=== PATIENT | female | born 1970 | race Caucasian/White ===

== ENCOUNTER 2020-07-24 04:21 | Emergency (ER) | payer MEDICAID, OTHER ==
[~2020-07-24] VITALS: Ht 172.7 cm; Wt 117.0 kg
--- NOTE | 2020-07-24 05:18 | PHYS DOC ---
Past History Past Medical History: Depression, Diabetes, GERD, Hypertension, Liver Disease (HUONG MYERS MD) Past Surgical History: Cholecystectomy (HUONG MYERS MD) Smoking: Cigarettes Alcohol Use: None Drug Use: Marijuana (HUONG MYERS MD) General Adult EDM: Chief Complaint: NAUSEA/VOMITING/DIARRHEA HPI: HPI: ". I ve been sick since yesterday... I had a [employer] last night.. but no one else got sick.. I hurt all over my stomach.. more in this upper area.. maybe a little to right... I know it not my gall badder ..because that is out...".. " It may be the Januvia.. I ve been sick and vomiting ever since I started.. dry heaves.. I just could not take it any more..." Patient is a 49 year old female who presents with severe generalized abdomen pain. Does have some localization to epigastric, and right mid area. Patient denies any intake bad food. No recent travel. No sick ill contacts. Patient does have a history of diabetes and hypertension. Has had continual GI problems since starting Januvia. Pt has hx prior GERD, Gastric ulcer in past. Last colonoscopy was negative. Has not had a EGD. Patient has had cholecystectomy. Patient does smoke tobacco and marijuana. Patient denies any history of trauma. Pt. follows at [facility]. Pt. has three cats and they are all well. (HUONG MYERS MD) Review of Systems: Review of Systems: Constitutional: Denies fever or chills Eyes: Denies change in visual acuity HENT: Denies nasal congestion or sore throat Respiratory: Denies cough or shortness of breath Cardiovascular: Denies chest pain or edema GI: Complains of abdominal pain, nausea, vomiting. Denies, bloody stools or diarrhea : Denies dysuria Musculoskeletal: Denies back pain or joint pain Integument: Denies rash Neurologic: Denies headache, focal weakness or sensory changes Endocrine: Denies polyuria or polydipsia Lymphatic: Denies swollen glands Psychiatric: Denies depression or anxiety (HUONG MYERS MD) Heart Score: HEART Score for Chest Pain: HEART Score for Chest Pain Response (Comments) Value History Slighlty/Non-Suspicious 0 ECG Normal 0 Age >45 - < 65 1 Risk Factors 1 or 2 Risk Factors 1 Troponin < Normal Limit 0 Total 2 Risk Factors: Risk Factors: DM, Current or recent (<one month) smoker, HTN, HLP, family history of CAD, obesity. Risk Scores: Score 0 - 3: 2.5% MACE over next 6 weeks - Discharge Home Score 4 - 6: 20.3% MACE over next 6 weeks - Admit for Clinical Observation Score 7 - 10: 72.7% MACE over next 6 weeks - Early Invasive Strategies (HUONG MYERS MD) Family History: Family History: Noncontributory to presentation (HUONG MYERS MD) Current Medications: Current Meds: See nursing for home meds (HUONG MYERS MD) Allergies: Allergies: Allergies Coded Allergies Type Severity Reaction Last Updated Verified codeine Allergy Severe Hives 07/24/20 Yes sulfamethoxazole Allergy Severe Itching 07/24/20 Yes trimethoprim Allergy Severe Itching 07/24/20 Yes (HUONG MYERS MD) Physical Exam: PE: Constitutional: in acute distress, non-toxic appearance. Pt. rocking back and forth on the bed .. due her pain. HENT: Normocephalic, atraumatic, bilateral external ears normal, oropharynx moist, postnasal drainage slight erythema, no oral exudates, nose swollen turbinates and clear rhinorrhea Eyes: PERRLA, EOMI, conjunctiva normal, no discharge. [] Neck: Normal range of motion, no tenderness, supple, no stridor. More than 17 inches circumference Cardiovascular: Cardiac heart rate regular rhythm, no murmur, PMI to the left Lungs & Thorax: Bilateral breath sounds equal apex with scattered wheezes on auscultation [] Abdomen: Bowel sounds hyperactive,, soft, generalized tenderness, no masses, no pulsatile masses. Rebound to right upper quadrant epigastric area. Tympanic. Has old surgery scars. Obese Skin: Warm, diaphoretic, no erythema, no rash. [] Back: No tenderness, no CVA tenderness. [] Extremities: No tenderness, no cyanosis, no clubbing, ROM intact, bilateral ankle edema. [] Neurologic: Alert and oriented X 3, moves all extremities on request, does have distal sensory,, no focal deficits noted. [] Psychologic: Affect anxious, judgement normal, mood normal. [] (HUONG MYERS MD) Current Patient Data: Vital Signs: Vital Signs Date Time Temp Pulse Resp B/P (MAP) Pulse Ox O2 Delivery O2 Flow Rate FiO2 07/24/20 04:21 98.6 95 30 137/119 (125) 98 Room Air (HUONG MYERS MD) EKG: EKG: My interpretation EKG shows a sinus rhythm at 88 bpm. No findings of acute morphology or acute STEMI with contralateral changes. [] (HUONG MYERS MD) Radiology/Procedures: Radiology/Procedures: My interpretation of acute abdomen film shows no acute cardiopulmonary findings, no free air under the diaphragm. Clips in the right upper quadrant from cholecystectomy. Nonspecific bowel gas pattern. Nonobstructive CT of abdomen pending at time of shift change (HUONG MYERS MD) Impressions: CT abdomen and pelvis with contrast History: Severe generalized abdominal pain Technique: After the administration of intravenous contrast, CT imaging was performed of the abdomen and pelvis. No oral contrast was given. Multiplanar images are reviewed. Exposure: One or more of the following individualized dose reduction techniques were utilized for this examination: 1. Automated exposure control 2. Adjustment of the mA and/or kV according to patient size 3. Use of iterative reconstruction technique. Comparison: None Findings: There is no significant abnormality of the visualized lung bases. There is some aortic annular and and possible aortic valvular calcification. There is hepatic steatosis. There is no significant focal abnormality of the liver, spleen, pancreas, adrenal glands. Both kidneys enhance without hydronephrosis. There is a 0.3 cm superior right renal calculus. There is a small 0.5 cm hypodense lesion of the medial superior left kidney too small to further accurately characterize. There has been cholecystectomy. Accurate evaluation of bowel is limited without oral contrast. There is no significant inflammatory change adjacent to the bowel. There is no evidence of bowel obstruction, free fluid, or free air. Degree of mid sigmoid colon colonic wall thickening is difficult to exclude. Normal caliber appendix is visualized without adjacent inflammatory change. There is scattered relatively mild diverticulosis of the descending and sigmoid colon, no adjacent inflammatory change. There is a small fat-containing umbilical hernia, neck about 0.7 cm transverse, no internal bowel. There is some scattered plaque of the abdominal aorta and iliac arteries. There are posterior bulges at L3-4 and L4-5. There is facet degenerative change greater inferiorly of the lumbar spine. Impression: 1. There is no significant inflammatory change about the bowel, no CT evidence of acute appendicitis. Degree of mid sigmoid colonic wall thickening is possible as may be seen with diverticulitis in the appropriate clinical setting. There is mild colonic diverticulosis. Colon screening is advised after resolution of acute symptoms if this has not been performed. 2. There is hepatic steatosis. 3. There is a small nonobstructive right renal calculus. Electronically signed by: Kwasi Barrow MD (07/24/2020 8:06 AM) [facility] DICTATED AND SIGNED BY: KWASI BARROW MD DATE: 07/24/20805 CC: JOHNSON AYON DO; HUONG MYERS MD; PCP,NO ~ (JOHNSON AYON DO) Course & Med Decision Making: Course & Med Decision Making Pertinent Labs and Imaging studies reviewed. (See chart for details) Discussed presentation and pending testing with Dr. Ayon he was assumed care of patient and disposition. Impression: 1. Abdomen pain 2. Nausea, vomiting, dry heaves 3. Morbid obesity 4. Diabetes-glucose 143 5. MIld Hypokalemia 6. Mild leukocytosis 11.6 7. Tobacco and marijuana use. [] (HUONG MYERS MD) Course & Med Decision Making I do not see anything significant in the patient's work-up. She has some fatty liver disease. CT scan really does not show any significant findings. The borderline diverticulitis is not consistent with her pain location or description. I really believe this is most likely adverse reaction to Victoza. She has been feeling bad for the 3 weeks since starting this medication. I do still think she is tolerating it well. I recommend that she talk to her physician about changing diabetes medications. She is in agreement with this plan. She does feel much better and would like to go home. She is stable for discharge at this time. (JOHNSON AYON DO) Dragon Disclaimer: Dragon Disclaimer: This electronic medical record was generated, in whole or in part, using a voice recognition dictation system. (HUONG MYERS MD) Departure Departure: Impression: Primary Impression: Epigastric abdominal pain Additional Impression: Adverse reaction to drug in therapeutic use Disposition: 01 DC HOME SELF CARE/HOMELESS Condition: STABLE Patient Instructions: Abdominal Pain, [id number] Dragon Disclaimer This chart was dictated in whole or in part using Voice Recognition software in a busy, high-work load, and often noisy Emergency Department environment. It may contain unintended and wholly unrecognized errors or omissions. (HUONG MYERS MD) HUONG MYERS MD Jul 24, 2020 05:18 JOHNSON AYON DO Jul 24, 2020 08:34
[2020-07-24 05:36] LABS: BASO # 0.1 x10^3/uL (0.0-0.2); BASO % 1 % (0-3); EOS # 0.3 x10^3/uL (0.0-0.7); EOS % 3 % (0-3); HEMOGLOBIN 15.1 g/dL (12.0-15.5); LYMPH # 1.9 x10^3/uL (1.0-4.8); LYMPH % 16 % (24-48); MEAN CORPUSCULAR HEMOGLOBIN 30 pg (25-35); MEAN CORPUSCULAR HGB CONC 33 g/dL (31-37); MEAN CORPUSCULAR VOLUME 90 fL (79-100); MONO # 0.4 x10^3/uL (0.0-1.1); MONO % 4 % (0-9); NEUT # 8.9 x10^3uL (1.8-7.7); NEUT % 77 % (31-73); PLATELET COUNT 311 x10^3/uL (140-400); RED BLOOD COUNT 5.11 x10^6/uL (3.50-5.40); RED CELL DISTRIBUTION WIDTH 14.8 % (11.5-14.5); WHITE BLOOD COUNT 11.6 x10^3/uL (4.0-11.0)
[2020-07-24 05:37] LABS: CALCIUM 9.6 mg/dL (8.5-10.1); CREATININE 1.3 mg/dL (0.6-1.0); GFR 43.4; POTASSIUM 3.2 mmol/L (3.5-5.1)
[2020-07-24 05:39] LABS: BARBITURATES NEG (NEG); BENZODIAZEPINES NEG (NEG); CANNABINOIDS POS (NEG); COCAINE NEG (NEG); METHADONE NEG (NEG); OPIATES NEG (NEG); PHENCYCLIDINE NEG (NEG)
[2020-07-24 05:40] LABS: AMPHETAMINE/METHAMPHETAMINE NEG (NEG)
[2020-07-24 05:43] LABS: ALBUMIN 3.9 g/dL (3.4-5.0); DIRECT BILIRUBIN 0.2 mg/dL (0.0-0.2); TOTAL BILIRUBIN 0.5 mg/dL (0.2-1.0); TOTAL PROTEIN 8.5 g/dL (6.4-8.2)
[2020-07-24 05:44] LABS: BILIRUBIN,URINE NEG (NEG); CLARITY,URINE CLEAR; COLOR,URINE YELLOW; GLUCOSE,URINE NEG (NEG)
[2020-07-24 05:45] LABS: NITRITE,URINE NEG (NEG); UROBILINOGEN,URINE 0.2 mg/dL (0.2 mg/dL)
[2020-07-24 05:46] LABS: BACTERIA,URINE 0 /HPF (0-FEW); SQUAMOUS EPITHELIAL CELL,UR FEW /LPF; WBC,URINE OCC /HPF (0-4)
[2020-07-24] MEDS ORDERED: ONDANSETRON PF 4 MG/2 ML VIAL. IVP ONE (06:00)
[2020-07-24] MEDS ORDERED: MORPHINE SULFATE 10 MG/ML SYRINGE. SQ ONE (06:00)
[2020-07-24] MEDS ORDERED: IV RINGERS SOLUTION,LACTATED 1,000 ML IV SCH (06:00)
[2020-07-24] MEDS ORDERED: FAMOTIDINE 20 MG/2 ML VIAL IVP ONE (06:00)
[2020-07-24] MEDS ORDERED: CONTRAST GIVEN. MC PRN (06:15)
[2020-07-24] MEDS ORDERED: IOHEXOL 240 MG/ML 50ML VIAL. PO ONE (06:30)
[2020-07-24] MEDS ORDERED: IOHEXOL 300 MG/ML 75 ML VIAL. IV ONE (06:30)
--- NOTE | 2020-07-24 06:31 | EKG ---
[address] [address] Test Date: 2020-07-24 Test Time: 05:02:36 Pat Name: RAMON GILL Department: Room: Gender: F [employer]: : 1970 Requested By: HUONG MYERS Order Number: [id number] Reading MD: Ariel Hemphill MD Measurements Intervals Sodus Rate: 88 P: 32 ND: 116 QRS: 37 QRSD: 96 T: 31 QT: 380 QTc: 463 Interpretive Statements SINUS RHYTHM Electronically Signed On 07-24-2020 14:14:02 CDT by Ariel Hemphill MD
[2020-07-24 06:34] VITALS: BP 135/82
[2020-07-24 06:35] LABS: INFLUENZA A PATIENT NEGATIVE (NEGATIVE); INFLUENZA B PATIENT NEGATIVE (NEGATIVE)
--- NOTE | 2020-07-24 06:53 | RAD ---
EXAM: ACUTE ABDOMEN SERIES 07/24/2020 5:19 AM CLINICAL INDICATION:Pain COMPARISON:None available TECHNIQUE:PA view of the chest, AP supine and upright views of abdomen FINDINGS:Bowel gas pattern is nonspecific and nonobstructive. Normal volume of stool. No calcifications. Cholecystectomy clips are noted. There is no acute osseous abnormality. No pneumoperitoneum. The heart is normal in size. Lungs are clear. No pleural effusion or pneumothorax. IMPRESSION:No acute abnormality. Electronically signed by: Lizbeth Sierra MD (07/24/2020 6:50 AM) [id number]
[2020-07-24] MEDS ORDERED: MORPHINE SULFATE 4 MG/ML DISP.SYRIN. IV ONE (07:00)
[2020-07-24] MEDS ORDERED: KETOROLAC 30 MG/ML VIAL. IVP ONE (07:00)
[2020-07-24] MEDS ORDERED: diphenhydrAMINE 50 MG/ML VIAL IVP ONE (07:45)
[2020-07-24] MEDS ORDERED: METOCLOPRAMIDE HCL 10 MG/2 ML VIAL. IVP ONE (07:45)
--- NOTE | 2020-07-24 08:09 | RAD ---
CT abdomen and pelvis with contrast History: Severe generalized abdominal pain Technique: After the administration of intravenous contrast, CT imaging was performed of the abdomen and pelvis. No oral contrast was given. Multiplanar images are reviewed. Exposure: One or more of the following individualized dose reduction techniques were utilized for this examination: 1. Automated exposure control 2. Adjustment of the mA and/or kV according to patient size 3. Use of iterative reconstruction technique. Comparison: None Findings: There is no significant abnormality of the visualized lung bases. There is some aortic annular and and possible aortic valvular calcification. There is hepatic steatosis. There is no significant focal abnormality of the liver, spleen, pancreas, adrenal glands. Both kidneys enhance without hydronephrosis. There is a 0.3 cm superior right renal calculus. There is a small 0.5 cm hypodense lesion of the medial superior left kidney too small to further accurately characterize. There has been cholecystectomy. Accurate evaluation of bowel is limited without oral contrast. There is no significant inflammatory change adjacent to the bowel. There is no evidence of bowel obstruction, free fluid, or free air. Degree of mid sigmoid colon colonic wall thickening is difficult to exclude. Normal caliber appendix is visualized without adjacent inflammatory change. There is scattered relatively mild diverticulosis of the descending and sigmoid colon, no adjacent inflammatory change. There is a small fat-containing umbilical hernia, neck about 0.7 cm transverse, no internal bowel. There is some scattered plaque of the abdominal aorta and iliac arteries. There are posterior bulges at L3-4 and L4-5. There is facet degenerative change greater inferiorly of the lumbar spine. Impression: 1. There is no significant inflammatory change about the bowel, no CT evidence of acute appendicitis. Degree of mid sigmoid colonic wall thickening is possible as may be seen with diverticulitis in the appropriate clinical setting. There is mild colonic diverticulosis. Colon screening is advised after resolution of acute symptoms if this has not been performed. 2. There is hepatic steatosis. 3. There is a small nonobstructive right renal calculus. Electronically signed by: Oswaldo Barrow MD (07/24/2020 8:06 AM) [facility]
[2020-07-24] MEDS ORDERED: ONDA4TAB12 PO (09:25)
== END 2020-07-24 09:30 | disposition home or self-care (01) ==
LOC: ER 04:21
DX: R10.84 Generalized abdominal pain (principal); R11.2 Nausea with vomiting, unspecified; T50.905A Adverse effect of unspecified drugs, medicaments and biological substances, initial encounter; R10.13 Epigastric pain; R10.11 Right upper quadrant pain; E66.01 Morbid (severe) obesity due to excess calories; Z68.39 Body mass index [BMI] 39.0-39.9, adult; E11.9 Type 2 diabetes mellitus without complications; E87.6 Hypokalemia; D72.829 Elevated white blood cell count, unspecified; K21.9 Gastro-esophageal reflux disease without esophagitis; I10 Essential (primary) hypertension; F17.210 Nicotine dependence, cigarettes, uncomplicated; F12.10 Cannabis abuse, uncomplicated; Z90.49 Acquired absence of other specified parts of digestive tract; Z88.5 Allergy status to narcotic agent; Z88.1 Allergy status to other antibiotic agents; Z88.2 Allergy status to sulfonamides; Y92.89 Other specified places as the place of occurrence of the external cause
CPT/HCPCS: 36415; 74022; 74177; 80048; 80076; 80307; 81001; 82150; 82550; 83690; 84484; 85025; 85610; 87070; 87804; 87880; 93005; 96361; 96372; 96374; 96375; 99285; J1200; J1885; J2270; J2405; J2765; J3010; J3490; J7120; Q9966; Q9967